=== PATIENT | female | born 2005 | race Two or more races ===

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

== ENCOUNTER 2025-01-01 20:49 | Emergency (ER) | payer SELFPAY ==
--- NOTE | 2025-01-01 21:10 | PC.NURSE ---
no answer in lobby when called for vital signs
--- NOTE | 2025-01-01 21:30 | PC.NURSE ---
no answer in lobby when called for vital signs
--- NOTE | 2025-01-01 21:49 | PC.NURSE ---
no answer in lobby when called for vital signs
== END 2025-01-02 00:57 | disposition left against medical advice (07) ==
LOC: SERX 22:22
PROVIDERS: Emergency Provider Emergency Medicine
DX: Z53.21 Procedure and treatment not carried out due to patient leaving prior to being seen by health care provider (principal)